=== PATIENT | female | born 1945 | race Two or more races ===

== ENCOUNTER → 2020-06-25 | Day surgery (SDC) | payer OTHER | END | disposition home or self-care (01) | LOC: JRADIR 09:41 | PROVIDERS: ATTEND Internal Medicine | PROC: 0G9K3ZX Drainage of Thyroid Gland, Percutaneous Approach, Diagnostic (ICD-10-PCS; principal; 2020-06-25) | DX: E04.1 Nontoxic single thyroid nodule (principal) | CPT/HCPCS: 76942 ==

== ENCOUNTER 2021-12-02 14:52 | Emergency (ER) | payer OTHER ==
[2021-12-02] MEDS ORDERED: BEBTELOVIMAB (EUA) 175 MG/2 ML VIAL IVPUSH ONE (14:54)
[2021-12-02 15:07] VITALS: BMI 26.6
[2021-12-02 17:07] VITALS: BP 134/71; PULSE 75; TEMP 98.1
== END 2021-12-02 17:05 | disposition home or self-care (01) ==
LOC: JER 14:52
PROC: 3E033GC Introduction of Other Therapeutic Substance into Peripheral Vein, Percutaneous Approach (ICD-10-PCS; principal; 2021-12-02)
DX: U07.1 COVID-19 (principal)
CPT/HCPCS: 99284-25; M0222; Q0222